=== PATIENT | male | born 1935 | race Caucasian/White ===

== ENCOUNTER → 2017-04-20 | Outpatient (CLI) | payer MEDICARE, BC ==
[2014-04-09 15:23] VITALS: BMI 26.4
[~2017-04-20] MED LIST: ACET-1966 PO; APIX5TAB PO; ASPI-1121 PO; ASPI-715 PO; ASPI-839 PO; ATOR40TA24 PO; ATOR40TA69 PO; BET25 PO; CA C1TAB85 PO; CEFU250 PO; CEPH-13 PO; CHOL100052 PO; CIPR-344 PO; CLO75 PO; DIPH-638 PO; DOC100 PO; DOCU-299 PO; FAM20 PO; FAMO-1 PO; FAMO-67 PO; FAMO20TA28 PO; HYDR-2946 PO; HYDR-2952 PO; HYDR-385 PO; HYDR-6016 PO; LATA2.5D6 OP; LATOD OU; LEV500 PO; LEVO500T PO; LOR5/325 PO; METO-233 PO; METO-235 PO; METXL50 PO; NIT3 PO; NITR0.4T3 SL; PHEN200T32 PO; PHENA100 PO; PHENA200 PO; PNEU0.5D3 IM; TAM4 PO; TAMS0.4C70 PO; VIT D; WAR5 PO; WARF2.5T11 PO; WARF5TAB23 PO; [UNRECOGNIZED DRUG - CODE] PO
--- NOTE | 2017-04-22 19:27 | RT HOLTER TEST ---
FACILITY: [facility] - [place] PATIENT NAME: BECKI AVELAR : [id number] MR: [id number] V: [id number] EXAM DATE: ORDERING PHYSICIAN: ARNALDO GREEN TECHNOLOGIST: LORENZO Arteaga date: 2017-04-20 13:15:00 Duration: 47:42:00 Test Indications: afib Medications: [id number] QRS complexes 1140 Ventricular ectopics which represent <1 % of total QRS comp. 799 Supraventricular ectopics which represent <1 % of total QRS comp. * Paced QRS complexes which represent % of total QRS comp. VENTRICULAR ECTOPY 1138 Isolated 9 Bigeminal Cycles 1 Couplets 0 Runs 0 Beats in Runs * Beats LONGEST at * BPM at :: -- * Beats FASTEST at * BPM at :: -- SUPRAVENTRICULAR ECTOPY 528 Isolated 65 Couplets 38 Runs 141 Beats in Runs 11 Beats LONGEST at 82 BPM at 08:59:07 2017-04-22 3 Beats FASTEST at 147 BPM at 22:25:06 2017-04-21 HEART RATES 38 MIN at 03:46:30 2017-04-21 68 AVG 125 MAX at 21:31:55 2017-04-21 LONGEST RR 1.896 secs at 03:46:22 2017-04-21 S-T LEVELS Channel 1 -12.800 mm MIN at 13:15:00 2017-04-20 -12.800 mm MAX at 13:15:00 2017-04-20 Channel 2 -12.800 mm MIN at 13:15:00 2017-04-20 -12.800 mm MAX at 13:15:00 2017-04-20 Channel 3 -12.800 mm MIN at 13:15:00 2017-04-20 -12.800 mm MAX at 13:15:00 2017-04-20 There were no symptoms reported during the test. The patient appeared to be predominantly in a sinus rhythm, but the P wave is difficult to see at times so runs of atrial fibrillation cannot be ruled out vs supraventricular ectopy. There was occ assional ventricular ectopy. Confirmed by MILI CLIFFORD ([id number]) on 04/22/2017 7:26:39 PM Referred By: Overread By: MILI CLIFFORD
== END ==
LOC: RESP 13:05
PROVIDERS: ATTEND Internal Medicine Cardiovascular Disease
DX: I48.0 Paroxysmal atrial fibrillation (principal)
CPT/HCPCS: 93225; 93226

== ENCOUNTER 2017-05-31 09:20 | Emergency (ER) | payer MEDICARE, BC ==
[2014-04-09 15:23] VITALS: Wt 92.1 kg
--- NOTE | 2017-05-31 09:23 | ER Report ---
History and Physical Time Seen By MD: 09:22 HPI/ROS CHIEF COMPLAINT: Rectal bleeding HISTORY OF PRESENT ILLNESS: Patient is an 82-year-old male who presents to the emergency department with complaint of rectal bleeding after a bowel movement. Patient states that approximately a month ago he had some severe constipation he self treated with some Colace as well as increasing hydration. He finally had a very large bowel movement and since that time he is been experiencing some episodic maroon-colored blood when wiping after a bowel movement. He denies feeling dizzy or feeling short of breath with exertion or at rest. He denies any abdominal pain. He denies nausea or vomiting he denies diarrhea. His bowel movements are normal and denies pain with defecation. He denies any melena and denies blood in this toilet bowl after bowel movement. Patient is on 2 baby aspirin daily but since the bleeding started he has discontinued this use. Because the symptoms have persisted he comes into the emergency department for evaluation. REVIEW OF SYSTEMS: Constitutional: No fever, no chills. Eyes: No discharge. ENT: No sore throat. Cardiovascular: No chest pain, no palpitations. Respiratory: No cough, no shortness of breath. Gastrointestinal: No abdominal pain, no vomiting. Rectal bleeding. Genitourinary: No hematuria. Musculoskeletal: No back pain. Skin: No rashes. Neurological: No headache. Allergies: Coded Allergies: bacitracin (Verified Allergy, Intermediate, CONTACT DERMATITIS, 05/31/17) polymyxin B (Verified Allergy, Intermediate, CONTACT DERMATITIS, 05/31/17) Uncoded Allergies: HAYFEVER (Allergy, Intermediate, SNEEZING, ITHCY EYES, 11/02/12) TOPICAL ANTIBOTICS (Allergy, Intermediate, CONTACT DERMATITISS, 06/28/06) Home Meds Active Scripts Metoprolol Succinate (TOPROL XL) 50 Mg Tab.er.24h, 1 TAB PO QDAY for 90 Days, # 90 TAB 3 Refills Prov:LAYLA MEDINA MD 01/07/17 Atorvastatin Calcium (ATORVASTATIN CALCIUM) 40 Mg Tablet, 1 TAB PO QDAY, #90 TAB 3 Refills Prov:LAYLA MEDINA MD 01/07/17 Nitroglycerin (NITROGLYCERIN) 0.4 Mg Tab.subl, 0.4 MG SL Q5MIN, #25 TAB 1 Refill dissolve one under the tongue every 5 minutes up to thre times, then call doctor Prov:MAURY HENDERSON MD 12/14/16 Reported Medications Tamsulosin Hcl (TAMSULOSIN HCL) 0.4 Mg Cap.er.24h, 0.4 MG PO PRN, CAP 05/31/17 Latanoprost (XALATAN) 2.5 Ml Drops, 2.5 ML OP 12/02/16 Acetaminophen (TYLENOL) 325 Mg Tablet, 325 MG PO Q4H Y for PAIN/HEADACHE 03/18/15 Aspirin (ASPIR-LOW) 81 Mg Tablet.dr, 81 MG PO BID, TAB 03/18/15 Cholecalciferol (Vitamin D3) (VITAMIN D) 1,000 Unit Tablet, 2000 UNIT PO DAILY 03/18/15 Past Medical/Surgical History Past medical history for hypertension, history of high cholesterol history of atrial fibrillation but status post radioablation. Hx Smoking: Yes (SMOKED 1 PPD FOR 15 YEARS) Smoking Status: Former Smoker Exposure to Second Hand Smoke?: No Hx Substance Use Disorder: No Hx Alcohol Use: Yes Constitutional Vital Sign - Last 24 Hours 05/31/17 05/31/17 05/31/17 05/31/17 09:20 09:28 09:30 09:40 Temp 97.5 Pulse 59 59 63 Resp 16 B/P (MAP) 154/88 154/88 (110) Pulse Ox 97 97 96 O2 Delivery Room Air 05/31/17 05/31/17 05/31/17 05/31/17 09:45 09:50 09:55 10:00 Pulse 70 57 54 51 B/P (MAP) 125/74 (91) Pulse Ox 98 97 97 05/31/17 05/31/17 05/31/17 05/31/17 10:10 10:15 10:30 10:35 Pulse 59 65 55 58 B/P (MAP) 130/87 (101) Pulse Ox 97 97 97 94 05/31/17 05/31/17 05/31/17 05/31/17 10:45 10:50 10:55 11:00 Pulse 63 61 61 B/P (MAP) 124/79 (94) Pulse Ox 97 97 96 05/31/17 05/31/17 05/31/17 05/31/17 11:05 11:10 11:15 11:20 Pulse 60 59 60 62 Pulse Ox 95 97 97 97 Physical Exam General/Constitutional: Patient is awake, alert, nontoxic and in no acute respiratory distress. Head: Normocephalic and atraumatic. Eyes: Conjunctival clear and pink. Sclera are clear and anicteric. Ears:External canals are clear. Tympanic membranes are clear with normal landmarks and light reflex. Nares: No rhinorrhea or bleeding. Turbinates are pink and moist. Oropharyngeal: Mucous membranes are moist. There is no pharyngeal erythema or exudate. There are no palatal petechiae. Uvula is midline and symmetrical. Neck: Supple, no adenopathy. Cardiovascular: Heart is regular rate and rhythm without audible murmurs, rubs or gallops. There is occasional ectopy to auscultation Pulmonary: Lungs are clear to auscultation bilaterally. There are no wheezes, rales, or rhonchi. Chest rise is symmetrical Abdomen: Soft, nontender, no guarding or peritoneal signs. Rectal exam: No gross blood noted. Stool is brown. No evidence of external hemorrhoids. Extremities: No gross deformities, No peripheral cyanosis. Able to move all 4 extremities. Neuro: Alert and oriented X3, Skin: No rashes, skin is warm dry and well perfused. Medical Decision Making Data Points Result Diagram: 05/31/17 0953 05/31/17 0953 Laboratory Hematology Test 05/31/17 09:53 05/31/17 10:31 Red Blood Count 4.85 M/uL (4.00-5.60) Mean Corpuscular Volume 94.0 fL (80.0-96.0) Mean Corpuscular Hemoglobin 32.8 pg (26.0-33.0) Mean Corpuscular Hemoglobin Concent 34.9 g/dL (32.0-36.0) Red Cell Distribution Width 13.5 % (11.5-14.5) Mean Platelet Volume 7.1 fL (7.2-11.1) Neutrophils (%) (Auto) 72.1 % (39.4-72.5) Lymphocytes (%) (Auto) 16.3 % (17.6-49.6) Monocytes (%) (Auto) 9.4 % (4.1-12.4) Eosinophils (%) (Auto) 1.7 % (0.4-6.7) Basophils (%) (Auto) 0.5 % (0.3-1.4) Nucleated RBC Relative Count (auto) 0.0 /100WBC Neutrophils # (Auto) 4.4 K/uL (2.0-7.4) Lymphocytes # (Auto) 1.0 K/uL (1.3-3.6) Monocytes # (Auto) 0.6 K/uL (0.3-1.0) Eosinophils # (Auto) 0.1 K/uL (0.0-0.5) Basophils # (Auto) 0.0 K/uL (0.0-0.1) Nucleated RBC Absolute Count (auto) 0.00 K/uL Prothrombin Time 13.2 seconds (12.0-14.4) Prothromb Time International Ratio 1.00 Activated Partial Thromboplast Time 27 seconds (23-35) Sodium Level 138 mmol/L (137-145) Potassium Level 4.0 mmol/L (3.5-5.0) Chloride Level 103 mmol/L (98-107) Carbon Dioxide Level 24 mmol/L (22-30) Blood Urea Nitrogen 17 mg/dl (9-21) Creatinine 0.90 mg/dl (0.66-1.25) Glomerular Filtration Rate Calc > 60.0 Random Glucose 94 mg/dl (75-110) Calcium Level 9.2 mg/dl (8.4-10.2) Total Bilirubin 1.3 mg/dl (0.2-1.3) Aspartate Amino Transf (AST/SGOT) 29 U/L (0-35) Alanine Aminotransferase (ALT/SGPT) 33 U/L (0-56) Alkaline Phosphatase 60 U/L (0-126) Total Protein 6.8 gm/dl (6.3-8.2) Albumin 3.8 g/dl (3.5-5.0) Stool Occult Blood (IFOB) Negative (NEGATIVE) Chemistry Test 05/31/17 09:53 05/31/17 10:31 White Blood Count 6.1 k/uL (4.5-11.0) Red Blood Count 4.85 M/uL (4.00-5.60) Hemoglobin 15.9 g/dL (14.0-18.0) Hematocrit 45.6 % (42.0-52.0) Mean Corpuscular Volume 94.0 fL (80.0-96.0) Mean Corpuscular Hemoglobin 32.8 pg (26.0-33.0) Mean Corpuscular Hemoglobin Concent 34.9 g/dL (32.0-36.0) Red Cell Distribution Width 13.5 % (11.5-14.5) Platelet Count 232 K/uL (150-450) Mean Platelet Volume 7.1 fL (7.2-11.1) Neutrophils (%) (Auto) 72.1 % (39.4-72.5) Lymphocytes (%) (Auto) 16.3 % (17.6-49.6) Monocytes (%) (Auto) 9.4 % (4.1-12.4) Eosinophils (%) (Auto) 1.7 % (0.4-6.7) Basophils (%) (Auto) 0.5 % (0.3-1.4) Nucleated RBC Relative Count (auto) 0.0 /100WBC Neutrophils # (Auto) 4.4 K/uL (2.0-7.4) Lymphocytes # (Auto) 1.0 K/uL (1.3-3.6) Monocytes # (Auto) 0.6 K/uL (0.3-1.0) Eosinophils # (Auto) 0.1 K/uL (0.0-0.5) Basophils # (Auto) 0.0 K/uL (0.0-0.1) Nucleated RBC Absolute Count (auto) 0.00 K/uL Prothrombin Time 13.2 seconds (12.0-14.4) Prothromb Time International Ratio 1.00 Activated Partial Thromboplast Time 27 seconds (23-35) Glomerular Filtration Rate Calc > 60.0 Calcium Level 9.2 mg/dl (8.4-10.2) Total Bilirubin 1.3 mg/dl (0.2-1.3) Aspartate Amino Transf (AST/SGOT) 29 U/L (0-35) Alanine Aminotransferase (ALT/SGPT) 33 U/L (0-56) Alkaline Phosphatase 60 U/L (0-126) Total Protein 6.8 gm/dl (6.3-8.2) Albumin 3.8 g/dl (3.5-5.0) Stool Occult Blood (IFOB) Negative (NEGATIVE) Coagulation Test 05/31/17 09:53 Prothrombin Time 13.2 seconds Prothromb Time International Ratio 1.00 Activated Partial Thromboplast Time 27 seconds EKG/Imaging EKG Interpretation EKG shows sinus bradycardia with a ventricular rate of 54 bpm. There is no significant ST segment changes or T-wave abnormalities. There is no evidence of ectopy Monitor Interpretation: Sinus Bradycardia ED Course/Re-evaluation Clinical Indication for ER IV: IV Access ED Course 05/31/2017 9:55:59 am plan at this time will be to perform blood draw for CBC coagulation panel on type and screen. We'll also obtain EKG given history of atrial fibrillation and occasional ectopy noticed on physical exam Decision to Disposition Date: May 31, 2017 Decision to Disposition Time: 11:30 Depart Departure Latest Vital Signs Vital Signs Date Time Temp Pulse Resp B/P (MAP) Pulse Ox O2 Delivery O2 Flow Rate FiO2 05/31/17 11:20 62 97 05/31/17 11:00 124/79 (94) 05/31/17 09:20 97.5 16 Room Air Impression: Primary Impression: Hemorrhoids Condition: Improved Disposition: HOME OR SELF-CARE Referrals: LAYLA MEDINA MD (PCP) GINNY RUBIO MD Scheduled follow-up appointment to set up a colonoscopy in the next 30 days Patient Instructions: Hemorrhoids (DC) Additional Instructions: Start taking Metamucil [id number] as directed Make an appointment to see Dr. Rubio to set up a colonoscopy Problem Qualifiers Primary Impression: Hemorrhoids Hemorrhoid type: unspecified Qualified Codes: K64.9 - Unspecified hemorrhoids JUJU NOVOA MD May 31, 2017 09:23
[2017-05-31] MEDS ORDERED: TAMS0.4C70 PO (09:29)
[2017-05-31 10:08] LABS: PLATELET COUNT, AUTOMATED 232 K/uL (150-450)
--- NOTE | 2017-05-31 10:53 | EKG ---
[place]AC[place] [facility] [place]IENT NAME: BECKI AVELAR : [id number] MR: [id number] V: [id number] EXAM DATE: ORDERING PHYSICIAN: JUJU NOVOA TECHNOLOGIST: NIKHIL Test Reason : AFIB Blood Pressure : / mmHG Vent. Rate : 054 BPM Atrial Rate : 054 BPM P-R Int : 202 ms QRS Dur : 090 ms QT Int : 456 ms P-R-T Axes : 030 008 032 degrees QTc Int : 432 ms Sinus bradycardia Otherwise normal ECG When compared with ECG of 20-MAR-2015 14:20, premature atrial complexes are no longer present Confirmed by YONAS RIVER ([id number]) on 05/31/2017 11:44:40 AM Referred By: BRIGHT Confirmed By:YONAS RIVER
[2017-05-31 11:30] VITALS: BP 134/79
== END 2017-05-31 11:43 | disposition home or self-care (01) ==
LOC: ER 09:20
DX: K64.9 Unspecified hemorrhoids (principal); R00.1 Bradycardia, unspecified
CPT/HCPCS: 82040; 82247; 82274; 82310; 82374; 82435; 82565; 82947; 84075; 84132; 84155; 84295; 84450; 84460; 84520; 85025; 85610; 85730; 86850; 86900; 86901; 93005; 99284

== ENCOUNTER → 2018-01-25 | Outpatient (CLI) | payer MEDICARE, BC ==
[2014-04-09 15:23] VITALS: BMI 26.4
[~2018-01-25] MED LIST changes: +FLU180SY11 IM; +OXYC-373 PO
--- NOTE | 2018-01-25 16:44 | RADIOLOGY IMAGING REPORT ---
[place] [facility] [place] NAME: Rob Boston : 1935 MR: [id number] V: [id number] EXAM DATE: ORDERING PHYSICIAN: GIRMA AVILES TECHNOLOGIST: Location: [facility] Patient: Rob Boston : 1935 Visit/Account:[id number] Date of Sevice: 01/25/2018 ABDOMEN/PELVIS W/O CONTRAST HISTORY: Right renal colic. TECHNIQUE: CT abdomen and pelvis without intravenous contrast. One of the following dose optimization techniques was utilized in the performance of this exam: Autom ated exposure control; adjustment of the mA and/or kV according to the patient's size; or use of an i terative reconstruction technique. Specific details can be referenced in the facility's radiology C T exam operational policy. CONTRAST: None. COMPARISON: 04/03/2014 FINDINGS: Visualized lung bases: Noncalcified 3 mm nodule right middle lobe (2/14). Atherosclerotic calcificat ions visualized right and posterior descending coronary arteries. Hepatobiliary: Negative. Spleen: Too small to characterize low attenuating lesion lateral segment left hepatic lobe, likely c yst. Adrenals: Negative. Pancreas: Mild to moderate fatty atrophy. Kidneys/: Several simple fluid attenuating renal cortical lesions consistent with cysts. Other too small to characterize low attenuating renal cortical lesions, likely cysts. Arising exophytically fr om the posterior lateral lower pole left kidney is a 1.5 cm intermediate attenuating lesion with ery pheral punctate calcifications or layering calcium debris. This latter finding has decreased in size from prior exam where it measured 1.9 cm and most likely represents hemorrhage within an otherwise be nign renal cyst. Four small right nonobstructing right renal stones, largest 3 mm. No ureteric stone or ongoing urinary obstruction. Likely sequela of prior transurethral prostate resection. Extending f rom the bladder neck into this resection site is an irregular 11 mm wide by 12 mm long stone. Conglom erate of additional coarse calcifications within the lumen near bladder dome, not clearly dependent a nd with additional considerations including a coarsely calcified mass. GI: Mild sigmoid diverticulosis. Vessels/spaces/nodes: Mild to moderate calcific atherosclerosis. Enlarged retrocaval lymph node inte rposed between the subhepatic inferior vena cava and right diaphragmatic giovanna, unchanged and given it s chronicity most likely benign. No other adenopathy. No free fluid. Bones/soft tissues: Small bone island right femoral head. Degenerative changes right greater than le ft hips. Degenerative changes visualized thoracolumbar spine, most pronounced at the L4-L5 level. IMPRESSION: 1. Several nonobstructing right renal stones but no ureteric stone or ongoing obstruction. 2. 11 x 12 mm stone within urinary bladder neck and extending into site of possible prior TURP. 3. Conglomerate additional coarse calcifications within urinary bladder lumen near dome, not clearly dependent and with considerations including adherent stones versus a calcified mass. Cystoscopy shoul d be considered. 4. Other chronic and/or benign-appearing changes detailed above including coronary atherosclerosis. Report Dictated By: Delon Reyna MD at 01/25/2018 4:14 PM Report E-Signed By: Delon Reyna MD at 01/25/2018 4:40 PM WSN:[id number]
== END ==
LOC: LAB 14:54
PROVIDERS: ATTEND Urology
DX: N20.0 Calculus of kidney (principal); I70.90 Unspecified atherosclerosis; Z87.442 Personal history of urinary calculi; Z85.51 Personal history of malignant neoplasm of bladder
CPT/HCPCS: 74176; 81001

== ENCOUNTER 2018-01-28 09:22 | Emergency (ER) | payer MEDICARE, BC ==
[2014-04-09 15:23] VITALS: Wt 95.3 kg
--- NOTE | 2018-01-28 09:27 | ER Report ---
History and Physical Time Seen By MD: 09:28 HPI/ROS CHIEF COMPLAINT: Penile pain HISTORY OF PRESENT ILLNESS: Patient is an 82-year-old male who states that told him to come in Wednesday for treatment of a left-sided ureteral stone. Patient was seen by on both the and [address] scan on the did show evidence of a proximal 7 mm ureteral stone on the left. The electronic medical records for both visits were reviewed. There was no mention in 's note with regard to any follow-up for Wednesday. Patient insists that Dr. Aviles instructed him to come to the emergency department today for a "procedure" nursing staff spoke with the nursing telephone information supervisor she is unaware of any procedures for Dr. Aviles today. I will attempt to reach out to Dr. Aviles to clarify these instructions. It is my impression that the patient was diagnosed with a kidney stone and was told if his pain wasn't controlled that he should return to the emergency department for reevaluation. REVIEW OF SYSTEMS: Respiratory: No cough, no dyspnea. Cardiovascular: No chest pain, no palpitations. Gastrointestinal: No vomiting, no abdominal pain. Musculoskeletal: Left flank pain Allergies: Coded Allergies: bacitracin (Verified Allergy, Intermediate, CONTACT DERMATITIS, 01/28/18) polymyxin B (Verified Allergy, Intermediate, CONTACT DERMATITIS, 01/28/18) Uncoded Allergies: HAYFEVER (Allergy, Intermediate, SNEEZING, ITHCY EYES, 11/02/12) TOPICAL ANTIBOTICS (Allergy, Intermediate, CONTACT DERMATITISS, 06/28/06) Home Meds Active Scripts Oxycodone Hcl/Acetaminophen (PERCOCET 5-325 MG TABLET) 1 Each Tablet, 1-2 EACH PO Q6H for PAIN, #25 TAB 0 Refills no more than 6 tablets in a 24 hour period Prov:JUJU NOVOA MD 01/28/18 Oxycodone Hcl/Acetaminophen (OXYCODONE-ACETAMINOPHEN 5-325) 1 Each Tablet, 1 EACH PO Q4-6H PRN for PAIN for 10 Days, #20 TAB Prov:GIRMA AVILES MD 01/26/18 Metoprolol Succinate (TOPROL XL) 50 Mg Tab.er.24h, 1 TAB PO QDAY for 90 Days, #90 TAB 3 Refills Prov:LAYLA MEDINA MD 01/07/17 Atorvastatin Calcium (ATORVASTATIN CALCIUM) 40 Mg Tablet, 1 TAB PO QDAY, #90 TAB 3 Refills Prov:LAYLA MEDINA MD 01/07/17 Nitroglycerin (NITROGLYCERIN) 0.4 Mg Tab.subl, 0.4 MG SL Q5MIN, #25 TAB 1 Refill dissolve one under the tongue every 5 minutes up to thre times, then call doctor Prov:MAURY HENDERSON MD 12/14/16 Reported Medications Tamsulosin Hcl (TAMSULOSIN HCL) 0.4 Mg Cap.er.24h, 0.4 MG PO PRN, CAP 05/31/17 Latanoprost (XALATAN) 2.5 Ml Drops, 2.5 ML OP 12/02/16 Acetaminophen (TYLENOL) 325 Mg Tablet, 325 MG PO Q4H PRN for PAIN/HEADACHE 03/18/15 Aspirin (ASPIR-LOW) 81 Mg Tablet.dr, 81 MG PO BID, TAB 03/18/15 Cholecalciferol (Vitamin D3) (VITAMIN D) 1,000 Unit Tablet, 2000 UNIT PO DAILY 03/18/15 Past Medical/Surgical History Past medical history for hypertension, history of high cholesterol history of atrial fibrillation but status post radioablation. Hx Smoking: Yes (SMOKED 1 PPD FOR 15 YEARS) Smoking Status: Former Smoker Exposure to Second Hand Smoke?: No Hx Substance Use Disorder: No Hx Alcohol Use: Yes Constitutional Vital Sign - Last 24 Hours 01/28/18 09:32 Temp 98.3 Pulse 56 Resp 16 B/P (MAP) 139/92 Pulse Ox 95 O2 Delivery Room Air Physical Exam General Appearance: The patient is alert, has no immediate need for airway protection and no current signs of toxicity. Respiratory: Chest is non tender, lungs are clear to auscultation. Cardiac: regular rate and rhythm Gastrointestinal: Abdomen is soft and non tender, no masses, bowel sounds normal. Musculoskeletal: Neck: Neck is supple and non tender. Extremities have full range of motion and are non tender. Skin: No rashes or lesions. Medical Decision Making ED Course/Re-evaluation ED Course 01/28/2018 10:02:16 am I was able to get in touch with who was able to clarify the patient's recent history. Patient had been complaining of urinary discomfort for approximately 2 months. He was seen on the and then in follow-up on January 26 by ., He was diagnosed with a large left-sided kidney stone. But because at the time patient's pain seemed well controlled he was sent home on oral pain medications with instructions to follow-up next week for possible stenting or lasering of the stone. wanted to obtain medical clearance prior to performing this procedure. Patient came to the emergency department because of persistent pain. He states that the pain medicine does work but it wears off after a period of time. He denies any new fevers. He is not having any vomiting. Patient was frustrated because he assumed that he was going to have a procedure done today to remove the stone. When I discussed this with , he stated that the procedure is not emergent at this time, but if he felt that his pain wasn't under control he would be glad to admit him to the hospital and perhaps the hospitalist could perform a screening exam so that they could facilitate doing stenting sometime early next week. The patient states that he does not want to stay in the hospital that long. I offered to increase his pain medication and did write a prescription so that he can take 1-2 Percocet tablets every 4-6 hours and dispensed 25 tablets. I did instruct him that if at any point he developed fever or his pH changed his mind with regard to admission he should return to the emergency department for reevaluation and subsequent admission. Patient and had no questions or concerns at time of disposition. Decision to Disposition Date: Jan 28, 2018 Decision to Disposition Time: 10:37 Depart Departure Latest Vital Signs Vital Signs Date Time Temp Pulse Resp B/P (MAP) Pulse Ox O2 Delivery O2 Flow Rate FiO2 01/28/18 09:32 98.3 56 16 139/92 95 Room Air Impression: Primary Impression: Kidney stones Condition: Condition Unchanged Disposition: HOME OR SELF-CARE Referrals: LAYLA MEDINA MD (PCP) GIRMA AVILES MD Call on Wednesday, January 31 to discuss arranging for surgical procedure for your kidney stone New Scripts Oxycodone Hcl/Acetaminophen (PERCOCET 5-325 MG TABLET) 1 Each Tablet 1-2 EACH PO Q6H for PAIN, #25 TAB 0 Refills no more than 6 tablets in a 24 hour period Prov: JUJU NOVOA MD 01/28/18 Patient Instructions: Kidney Stones (ED) Additional Instructions: Call on Wednesday to discuss arranging for kidney stone removal. If your pain worsens at any time and is not controlled he may return to the emergency department for reevaluation. If you developed fever at any time you should also return to the emergency department for reevaluation. JUJU NOVOA MD Jan 28, 2018 09:28
[2018-01-28 09:32] VITALS: BP 139/92
[2018-01-28] MEDS ORDERED: OXYC-865 PO (10:05)
== END 2018-01-28 10:14 | disposition home or self-care (01) ==
LOC: ER 09:39
DX: N20.0 Calculus of kidney (principal)
CPT/HCPCS: 99282

== ENCOUNTER → 2018-02-01 | Outpatient (CLI) | payer MEDICARE, BC ==
[2014-04-09 15:23] VITALS: BMI 26.4
[~2018-02-01] MED LIST changes: +OXYC-865 PO
[2018-02-01 14:51] LABS: PLATELET COUNT, AUTOMATED 266 K/uL (150-450)
== END ==
LOC: LAB 14:40
PROVIDERS: ATTEND Urology
DX: Z01.818 Encounter for other preprocedural examination (principal)
CPT/HCPCS: 36415; 82310; 82374; 82435; 82565; 82947; 84132; 84295; 84520; 85025; 87088

== ENCOUNTER → 2018-02-02 | Outpatient (CLI) | payer MEDICARE, BC ==
[2014-04-09 15:23] VITALS: BMI 26.4
[2018-02-02 14:58] LABS: LDL CHOLESTEROL 57 mg/dl
--- NOTE | 2018-02-02 16:07 | EKG ---
FACILITY: [facility] - [place] PATIENT NAME: BECKI AVELAR : [id number] MR: [id number] V: [id number] EXAM DATE: ORDERING PHYSICIAN: LAYLA MEDINA TECHNOLOGIST: ARIAN Test Reason : PRE OP Blood Pressure : / mmHG Vent. Rate : 063 BPM Atrial Rate : 063 BPM P-R Int : 200 ms QRS Dur : 090 ms QT Int : 446 ms P-R-T Axes : 038 018 056 degrees QTc Int : 456 ms Sinus bradycardia with PACs Otherwise normal ECG When compared with ECG of 05.31.2017 premature atrial complexes present Confirmed by Luciano Webb ([id number]) on 02/02/2018 6:59:40 PM Referred By: Confirmed By:Luciano Pa
== END ==
LOC: LAB 14:24
PROVIDERS: ATTEND Internal Medicine
DX: Z01.818 Encounter for other preprocedural examination (principal); N20.0 Calculus of kidney; E78.5 Hyperlipidemia, unspecified; C61 Malignant neoplasm of prostate; I25.10 Atherosclerotic heart disease of native coronary artery without angina pectoris; I48.91 Unspecified atrial fibrillation
CPT/HCPCS: 36415; 82040; 82247; 82310; 82374; 82435; 82465; 82565; 82947; 83718; 84075; 84132; 84153; 84155; 84295; 84443; 84450; 84460; 84478; 84520

== ENCOUNTER 2018-02-07 00:42 | Day surgery (SDC) | payer MEDICARE, BC ==
[2014-04-09 15:23] VITALS: Ht 198.1 cm; Wt 94.3 kg
[~2018-02-07] VITALS: Ht 198.1 cm; Wt 94.3 kg
[~2018-02-07 00:42] MED LIST changes: +NORMOSOL R SOLN(*) 1000 ML BAG 1,000 ML IV PRN
[2018-02-07] MEDS ORDERED: LEVOFLOXACIN/D5W*500 MG/100 ML 100 ML IVPB ONE (06:30)
[2018-02-07] MEDS ORDERED: LIDOCAINE MPF 1% 5 ML VIAL ONE (08:18)
[2018-02-07] MEDS ORDERED: fentaNYL CITR 100 MCG/2 ML AMP ONE (08:18)
[2018-02-07] MEDS ORDERED: PROPOFOL EMUL(*) 10MG/ML 20 ML 20 ML ONE (08:18)
[2018-02-07] MEDS ORDERED: ONDANSETRON 4 MG/2 ML VIAL ONE (08:18)
[2018-02-07] MEDS ORDERED: DEXAMETHASONE SOD 4 MG/ML VIAL ONE (08:18)
[2018-02-07] MEDS ORDERED: KETAMINE HCL 200 MG/20 ML MDV ONE (08:30)
[2018-02-07] MEDS ORDERED: FAMOTIDINE 20 MG TAB ONE (08:55)
[2018-02-07 09:15] VITALS: BP 144/86
[2018-02-07] MEDS ORDERED: LIDOCAINE/SOD BICARB 8.4% SYR ID ONE (09:25)
[2018-02-07] MEDS ORDERED: FAMOTIDINE 20 MG/50 ML PREMIX IVPB ONE (09:25)
[2018-02-07] MEDS ORDERED: MIDAZOLAM 2 MG/2 ML VIAL IVP PRN (09:25)
[2018-02-07] MEDS ORDERED: NORMOSOL R SOLN(*) 1000 ML BAG 1,000 ML IV PRN (09:30)
[2018-02-07] MEDS ORDERED: IOPAMIDOL-200 50 ML VIAL IS ONE (10:53)
[2018-02-07] MEDS ORDERED: BELLADONNA ALK/OPIUM 60MG SUPP PR ONE (11:16)
[2018-02-07 13:25] VITALS: BP 162/88
[2018-02-07 14:00] VITALS: BP 146/89
--- NOTE | 2018-02-07 14:41 | RADIOLOGY IMAGING REPORT ---
FACILITY: [facility] PATIENT NAME: Rob Boston : 1935 MR: [id number] V: [id number] EXAM DATE: ORDERING PHYSICIAN: GIRMA AVILES TECHNOLOGIST: [place] [facility] [place] : 1935 Visit/Account:[id number] Date of Sevice: 02/07/2018 Exam type: RETROGRADE PYELOGRAM History: HEMATURIA, LEFT STONES Comparison: CT abdomen pelvis January 25, 2018. Findings: Nine intraoperative fluoroscopic spot images over the abdomen and pelvis were submitted. The total f luoroscopy time was 13 seconds. The fluoroscopy dose was 10.76 mGray. A cystoscope projects over the lower pelvis. There is placement of a left ureteral scope and guidewi re. Contrast is seen outlining the left ureter. In the mid left ureter there is a filling defect li margarita relating to the left ureteral calculus seen on the recent CT scan. Final images demonstrate siobhan cement of a left ureteral pigtail stent. Coarse calcifications project over the bladder as seen on t he CT scan IMPRESSION: 1. As above Report Dictated By: Natalie Hutchison MD at 02/07/2018 1:57 PM Report E-Signed By: Natalie Hutchison MD at 02/07/2018 2:36 PM WSN:[id number]
[2018-02-07 14:45] VITALS: BP 149/91
[2018-02-07 14:56] VITALS: BP 159/81
[2018-02-07 14:59] VITALS: BP 151/87
--- NOTE | 2018-02-07 15:50 | Urology Discharge Summary ---
Discharge Summary Departure Weight (Pounds): 208 Weight (Ounces): 0.9 Condition: Improved Discharge: Home Home Health RN Follow Up For: [facility] Discharge Code Status: Full Code Time Spent: < 30 min Discharge Instructions Home Meds Active Scripts Metoprolol Succinate (TOPROL XL) 50 Mg Tab.er.24h, 1 TAB PO QDAY for 90 Days, #90 TAB 3 Refills Prov:LAYLA MEDINA MD 01/07/17 Atorvastatin Calcium (ATORVASTATIN CALCIUM) 40 Mg Tablet, 1 TAB PO QDAY, #90 TAB 3 Refills Prov:LAYLA MEDINA MD 01/07/17 Nitroglycerin (NITROGLYCERIN) 0.4 Mg Tab.subl, 0.4 MG SL Q5MIN, #25 TAB 1 Refill dissolve one under the tongue every 5 minutes up to thre times, then call doctor Prov:MAURY HENDERSON MD 12/14/16 Reported Medications Tamsulosin Hcl (TAMSULOSIN HCL) 0.4 Mg Cap.er.24h, 0.4 MG PO PRN, CAP 05/31/17 Latanoprost (XALATAN) 2.5 Ml Drops, 2.5 ML OP 12/02/16 Acetaminophen (TYLENOL) 325 Mg Tablet, 325 MG PO Q4H PRN for PAIN/HEADACHE 03/18/15 Aspirin (ASPIR-LOW) 81 Mg Tablet.dr, 81 MG PO QDAY, TAB 03/18/15 Cholecalciferol (Vitamin D3) (VITAMIN D) 1,000 Unit Tablet, 2000 UNIT PO DAILY 03/18/15 Discontinued Scripts Oxycodone Hcl/Acetaminophen (PERCOCET 5-325 MG TABLET) 1 Each Tablet, 1-2 EACH PO Q6H for PAIN, #25 TAB 0 Refills no more than 6 tablets in a 24 hour period Prov:JUJU NOVOA MD 01/28/18 Oxycodone Hcl/Acetaminophen (OXYCODONE-ACETAMINOPHEN 5-325) 1 Each Tablet, 1 EA CH PO Q4-6H PRN for PAIN for 10 Days, #20 TAB Prov:GIRMA AVILES MD 01/26/18 Special Instructions: KAMARA CATHETER TO BE REMOVED ON WEDNESDAY BY HOME HEALTH CARE. DR. AVILES'S NURSE WILL CALL YOU TO SET UP A FOLLOW-UP APPOINTMENT. CALL DR. AVILES FOR ANY QUESTIONS OR CONCERNS [phone] Venous Thromboembolism Antithrombotics Is Pt On Any Antithrombotics?: No GIRMA AVILES MD Feb 07, 2018 15:50
--- NOTE | 2018-02-08 05:52 | OPERATIVE REPORT 1 ---
EVENT DATE: February 07, 2018 SURGEON: Sylvain Wiley MD ANESTHESIOLOGIST: Obey Luciano MD ANESTHESIA: LMA general. SIMULATION ANALYST: None. PREOPERATIVE DIAGNOSIS Left ureteral calculus, extensive bladder calculi. POSTOPERATIVE DIAGNOSIS Spontaneously passed left ureteral calculus, bladder calcifications, prostatic urethral calcifications. PROCEDURE PERFORMED Left ureteroscopy with stent placement, laser litholapaxy of extensive bladder calculi, bladder biopsy. ESTIMATED BLOOD LOSS Less than 20 mL. DESCRIPTION OF PROCEDURE Patient was brought to the operating room, and after the adequate induction of general anesthesia, he was placed in the relaxed dorsal lithotomy position. The genitalia were scrubbed, prepped and draped in the sterile fashion and the lower urinary tract examined with the rigid cystoscope. Immediately apparent within the prostatic fossa was a large calcification which I was able to displace back into the dependent portion of the bladder. Attention was then turned to the left ureteral orifice. I was able to advance a Sensor wire to the level of the renal pelvis, and its position confirmed fluoroscopically. I then was able to negotiate the rigid ureteroscope into the distal ureter and then into the midureter. At the site where the stone was previously noted, there was an area of irritation, but the entire distal ureter was somewhat dilated, suspicious for having recently passed a kidney stone. I did a retrograde pyelogram, and the entire ureter was dilated down to the level of the ureteropelvic junction, and my presumption was that the stone had passed into the bladder. Attention was then turned to the bladder itself. At the dome of the bladder, just to the left of the air bubble, there was an extensive coalescence of calculi. These were quit adherent to the underlying bladder mucosa. I was able to use the resectoscope loop to dislodge some of them, but several areas were densely adherent and could not be dislodged. For this reason, I placed the resectoscope sheath with the laser bridge and sequentially fragmented the residual adherent stones on the dome of the bladder. I then sequentially fragmented the stones in the dependent portion of the bladder, and using the Colleen evacuator, all this stone material was evacuated free. I then exchanged the laser bridge for the resectoscope and took sales service representative samples from the area of the bladder that were underlying the stone material. This was sent for pathologic review. The position of the stent was confirmed fluoroscopically. His bladder was emptied with a 22-Mexican 30-mL three-way Carrillo catheter. A B and O suppository was administered. He was aroused from anesthesia and then transported to PACU in stable condition. Estimated blood loss was less than 20 mL. MTDD
== END 2018-02-07 13:25 | disposition home or self-care (01) ==
LOC: OR 00:42
PROVIDERS: ATTEND Urology
DX: N21.0 Calculus in bladder (principal)
CPT/HCPCS: 52204; 52318; 52332; 74420; 82365; 88300; 88305; A4346; A9270; C1769; C1894; C2617; J1100; J1956; J2001; J2405; J2704; J3010; J3490; Q9966

== ENCOUNTER → 2018-02-16 | Outpatient (CLI) | payer MEDICARE, BC ==
[2014-04-09 15:23] VITALS: BMI 26.4
[~2018-02-16] MED LIST changes: +CIPR-214 PO; -NORMOSOL R SOLN(*) 1000 ML BAG 1,000 ML IV PRN
== END ==
LOC: LAB 15:08
PROVIDERS: ATTEND Urology
DX: N20.0 Calculus of kidney (principal)
CPT/HCPCS: 87088

== ENCOUNTER → 2018-02-16 | Outpatient (CLI) | payer MEDICARE, BC ==
[2014-04-09 15:23] VITALS: BMI 26.4
--- NOTE | 2018-02-16 15:27 | RADIOLOGY IMAGING REPORT ---
FACILITY: [facility] PATIENT NAME: Rob Boston : 1935 MR: [id number] V: [id number] EXAM DATE: ORDERING PHYSICIAN: GIRMA AVILES TECHNOLOGIST: Location: [facility] Patient: Rob Boston : 1935 Visit/Account:[id number] Date of Sevice: 02/16/2018 Exam type: KUB SINGLE VIEW ABDOMEN History: kidney stones and stent placement Comparison: Retrograde program February 07, 2018. Findings: There is a nonspecific bowel gas pattern present. There is a left ureteral stent in place. The dist al pigtail projects across midline towards the right which represents an interval change when compare d the prior study. 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 There is an additional vague calcific density projecting just lateral to the left ureteral stent just above the left sacral salena, possibly a left u reteral calculus IMPRESSION: 1. Left ureteral stent appears to migrated more distally when compared to the asymmetry program as d etailed above [place] calcification projects just lateral to the left ureteral stent just above the left sacral salena, possibly the previously noted left ureteral stone Report Dictated By: Natalie Hutchison MD at 02/16/2018 3:18 PM Report E-Signed By: Natalie Hutchison MD at 02/16/2018 3:22 PM WSN:[email or web address]
== END ==
LOC: RAD 14:05
PROVIDERS: ATTEND Urology
DX: N20.0 Calculus of kidney (principal)
CPT/HCPCS: 74018

== ENCOUNTER → 2018-08-10 | Outpatient (CLI) | payer MEDICARE, BC ==
[2014-04-09 15:23] VITALS: BMI 26.4
[~2018-08-10] MED LIST changes: +NITR-105 PO
== END ==
LOC: LAB 10:26
PROVIDERS: ATTEND Urology
DX: R31.9 Hematuria, unspecified (principal); B96.89 Other specified bacterial agents as the cause of diseases classified elsewhere
CPT/HCPCS: 81001; 87077; 87088; 87186

== ENCOUNTER → 2018-08-17 | Outpatient (CLI) | payer MEDICARE, BC ==
[2014-04-09 15:23] VITALS: BMI 26.4
[2018-08-17 15:17] LABS: LDL CHOLESTEROL 69 mg/dl
== END ==
LOC: LAB 13:40
PROVIDERS: ATTEND Internal Medicine
DX: I25.10 Atherosclerotic heart disease of native coronary artery without angina pectoris (principal); C61 Malignant neoplasm of prostate; R73.9 Hyperglycemia, unspecified; E78.5 Hyperlipidemia, unspecified
CPT/HCPCS: 82040; 82247; 82310; 82374; 82435; 82465; 82565; 82947; 83036; 83718; 84075; 84132; 84153; 84155; 84295; 84443; 84450; 84460; 84478; 84520

== ENCOUNTER → 2018-09-09 | Outpatient (CLI) | payer MEDICARE, BC ==
[2014-04-09 15:23] VITALS: BMI 26.4
[~2018-09-09] MED LIST changes: +NITR-57 PO
== END ==
LOC: LAB 11:45
PROVIDERS: ATTEND Urology
DX: R30.0 Dysuria (principal); R31.9 Hematuria, unspecified
CPT/HCPCS: 81001; 87077; 87088; 87186

== ENCOUNTER → 2018-09-16 | Outpatient (CLI) | payer MEDICARE, BC ==
[2014-04-09 15:23] VITALS: BMI 26.4
== END ==
LOC: CT 01:36
PROVIDERS: ATTEND Urology
DX: Z02.9 Encounter for administrative examinations, unspecified (principal)